=== PATIENT | female | born 1935 | race Caucasian/White ===

== ENCOUNTER 2017-04-02 18:05 | Emergency (ER) | payer MEDICARE | END 2017-04-02 21:10 | disposition home or self-care (01) | LOC: D.ER 18:05 | DX: S02.2XXA Fracture of nasal bones, initial encounter for closed fracture (principal); W06.XXXA Fall from bed, initial encounter; Y93.89 Activity, other specified; Y92.029 Unspecified place in mobile home as the place of occurrence of the external cause ==

== ENCOUNTER 2017-06-14 16:51 | Emergency (ER) | payer MEDICARE | END 2017-06-14 21:15 | disposition home or self-care (01) | LOC: D.ER 16:51 | DX: S39.012A Strain of muscle, fascia and tendon of lower back, initial encounter (principal); W19.XXXA Unspecified fall, initial encounter; Y93.89 Activity, other specified; Y92.019 Unspecified place in single-family (private) house as the place of occurrence of the external cause; M54.5 Low back pain; R51 Headache ==